=== PATIENT | male | born 1935 | race Caucasian/White ===

== ENCOUNTER 2023-03-11 19:54 | Inpatient (IN) | payer OTHER ==
[~2023-03-11] VITALS: Ht 185.4 cm; Wt 80.3 kg
--- NOTE | 2023-03-11 21:00 | NUR ---
Patient is removing oxygen tubing despite being told to keep oxygen in place. MD notified.
[2023-03-11 21:25] LABS: ABG BASE EXCESS -5.8 mmol/L; ABG HCO3 18.5 mmol/L; ABG PCO2 32.6 mmHg (35.0-45.0); ABG PH 7.372 (7.350-7.450); ABG PO2 206.3 mmHg (75.0-100.0); ABG SITE LEFT RADIAL; ABG TOTAL HEMOGLOBIN 12.6 G/dL (13.5-18.0); COHb 0.8 % (0.5-1.5); MetHb 0.2 % (0.0-1.5); O2Hb 98.7 % (94.0-97.0)
[2023-03-11] MEDS ORDERED: FUROSEMIDE 40 MG/4 ML VIAL IV ONE (22:00)
[2023-03-11 22:03] LABS: HEMATOCRIT 36.2 % (36.7-47.1); MEAN CORPUSCULAR HEMOGLOBIN 24.4 uug (23.8-33.4); MEAN CORPUSCULAR VOLUME 77.9 fL (73.0-96.2); PLATELET COUNT (AUTO) 463 K/uL (152-348)
[2023-03-11] MEDS ORDERED: FUROSEMIDE 40 MG/4 ML VIAL ONE (22:07)
[2023-03-11] MEDS ORDERED: PIPERACILLIN SODIUM/TAZOBACTAM 3.375 G in IV DEXTROSE 5% 50 ML IV ONE (22:30)
[2023-03-11] MEDS ORDERED: VANCOMYCIN IV 1,000 MG in IV DEXTROSE 5% 250 ML IV ONE (22:30)
[2023-03-11 22:35] LABS: CARBON DIOXIDE 28 mmol/L (21-32); CHLORIDE 97 mmol/L (98-107); CREATININE 1.4 mg/dL (0.6-1.3); POTASSIUM 4.4 mmol/L (3.5-5.1); UREA NITROGEN, BLOOD 31 mg/dL (7-18)
[2023-03-11 22:43] LABS: GLUCOSE 314 mg/dL (74-106)
--- NOTE | 2023-03-11 23:05 | NUR ---
Patient's wrist restraints removed as patient is sleeping and is not removing equipment. notified.
[2023-03-11] MEDS ORDERED: PIPERACILLIN/TAZOBACTAM/D5W 50 ML IV ONE (23:25)
[2023-03-11] MEDS ORDERED: MAGNESIUM SULFATE/D5W 100 ML ONE (23:25)
[2023-03-11] MEDS ORDERED: VANCOMYCIN IV 200 ML ONE (23:25)
[2023-03-11] MEDS ORDERED: MAGNESIUM SULFATE/D5W 300 ML ONE (23:26)
[2023-03-11] MEDS: MAGNESIUM SULFATE/D5W 100 ML IV SCH (23:39)
[2023-03-12] VITALS (8 sets, daily range): BP systolic 99–105; BP diastolic 39–56
[2023-03-12] MEDS ORDERED: REMEDY ESSENTIAL ZINC PASTE 113 GM TP PRN (00:15)
[2023-03-12] MEDS ORDERED: INSULIN REGULAR, HUMAN 300 UNIT/3 ML VIAL SQ PRN (00:15)
[2023-03-12] MEDS ORDERED: ACETAMINOPHEN 325 MG TABLET PO PRN (00:15)
[2023-03-12] MEDS ORDERED: ONDANSETRON 4 MG/2 ML VIAL IV PRN (00:15)
[2023-03-12] MEDS ORDERED: CEFEPIME HCL 1 G in IV DEXTROSE 5% 50 ML IV SCH (00:15)
[2023-03-12] MEDS ORDERED: MAGNESIUM HYDROXIDE 30 ML LIQUID UDC PO PRN (00:15)
[2023-03-12] MEDS ORDERED: DEXTROSE 50% 50 ML DISP.SYRIN IV PRN ×3 (00:15→20:30)
[2023-03-12] MEDS: MAGNESIUM SULFATE/D5W 100 ML IV SCH ×3 (00:19→02:49)
--- NOTE | 2023-03-12 01:07 | NUR ---
Called third floor to give report, but was informed that patient is CCU/ICU status.
--- NOTE | 2023-03-12 01:09 | NUR ---
Called central supply supervisor Dave made aware that patient is now CCU status. Was told no RN to recieve patient. Patient will remain in ER until ICU is available.
[2023-03-12 01:13] LABS: BILIRUBIN,DIRECT 0.6 mg/dL (0.0-0.2)
--- NOTE | 2023-03-12 01:23 | NUR ---
Lab called, spoke to Sp- patient's troponin is 88.2.
--- NOTE | 2023-03-12 01:29 | NUR ---
Called after hours pharmacy to verify patient meds.
[2023-03-12] MEDS ORDERED: CEFEPIME HCL 1 G VIAL ONE (02:01)
[2023-03-12] MEDS ORDERED: HYDR-4075 PO (02:01)
[2023-03-12] MEDS ORDERED: DOCU-141 PO (02:01)
[2023-03-12] MEDS ORDERED: LOSA50TA39 PO (02:01)
[2023-03-12] MEDS ORDERED: ARGI1POW17 PO (02:01)
[2023-03-12] MEDS ORDERED: FAMO20TA8 PO (02:01)
[2023-03-12] MEDS ORDERED: CHOL10005 PO (02:01)
[2023-03-12] MEDS ORDERED: MULT-213 PO (02:01)
[2023-03-12] MEDS ORDERED: LEVO50TA8 PO (02:01)
[2023-03-12] MEDS ORDERED: DOCU100C36 PO (02:01)
[2023-03-12] MEDS ORDERED: CRAN450T9 PO (02:01)
[2023-03-12] MEDS ORDERED: INSU100V42 (02:01)
[2023-03-12] MEDS ORDERED: AMIN30LI27 PO (02:01)
[2023-03-12] MEDS ORDERED: ZINC220T4 PO (02:01)
[2023-03-12] MEDS ORDERED: ACET-2605 PO (02:01)
[2023-03-12] MEDS ORDERED: NUT.237L36 PO (02:01)
[2023-03-12] MEDS ORDERED: ASCO500T85 PO (02:01)
--- NOTE | 2023-03-12 03:43 | NUR ---
Patient is in room sleeping comfortably.
--- NOTE | 2023-03-12 04:30 | NUR ---
Maxepime 1G given although pharmacy changed administration time.
[2023-03-12 05:22] LABS: HEMATOCRIT 32.4 % (36.7-47.1); MEAN CORPUSCULAR HEMOGLOBIN 24.4 uug (23.8-33.4); MEAN CORPUSCULAR VOLUME 77.2 fL (73.0-96.2); PLATELET COUNT (AUTO) 372 K/uL (152-348)
--- NOTE | 2023-03-12 05:35 | NUR ---
Transferred patient to hospital bed in room 1B in ER.
[2023-03-12 05:36] LABS: ABG BASE EXCESS 1.9 mmol/L; ABG HCO3 26.8 mmol/L; ABG PCO2 42.9 mmHg (35.0-45.0); ABG PH 7.413 (7.350-7.450); ABG PO2 113.9 mmHg (75.0-100.0); ABG SITE LEFT RADIAL; ABG TOTAL HEMOGLOBIN 12.2 G/dL (13.5-18.0); MetHb 0.1 % (0.0-1.5); O2Hb 97.6 % (94.0-97.0); VENT MODE BIPAP
[2023-03-12 05:44] LABS: BILIRUBIN,TOTAL 1.4 mg/dL (0.2-1.0)
[2023-03-12 05:45] LABS: BILIRUBIN,DIRECT 0.7 mg/dL (0.0-0.2); TOTAL PROTEIN, SERUM 6.7 g/dL (6.4-8.2)
[2023-03-12 05:49] LABS: CARBON DIOXIDE 30 mmol/L (21-32); CHLORIDE 97 mmol/L (98-107); CREATININE 1.2 mg/dL (0.6-1.3); MAGNESIUM 1.9 mg/dL (1.8-2.4); PHOSPHOROUS 3.7 mg/dL (2.5-4.9); POTASSIUM 3.9 mmol/L (3.5-5.1); UREA NITROGEN, BLOOD 32 mg/dL (7-18)
[2023-03-12 05:52] LABS: GLUCOSE 332 mg/dL (74-106)
[2023-03-12 05:53] LABS: THYROID STIMULATING HORMONE 3.269 mIU/mL (0.358-3.740)
--- NOTE | 2023-03-12 07:30 | NUR ---
NIGHT NURSE REPORT: 1) MAINTAINING SAFETY/MENTAL STATUS: Night RN stated that patient is AOx34 - maybe due to language barrier and condition, no sign of distress observed at the time of this report 2) BREATHING: Patient has BiPAP in situe- saturating in the high 93% on 28% oxygen 3) COMMUNICATION: Patient speaks Swedish only - will utilize translation resources to ensure that patient is able to communicate needs. 4) EATING & DRINKING:Patient is NPO - needs regular mouth care, and reassurance. 5) ELIMINATION: Is incontinent of bowel, uses a urinal to urinate. 6) HYGIENE: Need max assistance due to condition. 7) CONTROLLING TEMPERATURE: 8) MOBILITY: Patient on bedrest dude to medical condition. 9) WORKING & PLAYIN)SLEEPING: Patient asleep comfortably at the time of this report. 11) Will continue to: - Assess - Plan - Implement - Evaluate and treat patient accordingly.
--- NOTE | 2023-03-12 07:30 | NUR ---
SAFETY: Checked on patient after report - no sign of distress, sob, non verbal signs of pain observed.
[2023-03-12] MEDS ORDERED: INSULIN REGULAR, HUMAN 300 UNIT/3 ML VIAL ONE (07:52)
[2023-03-12] MEDS: BLOOD SUGAR DIAGNOSTIC 1 EACH STRIP VI SCH ×2 (08:01→12:10)
--- NOTE | 2023-03-12 08:15 | NUR ---
ADL/HYGIENE; 1) Bed bath provided. 2) Bed linen changed 3) Unable to provide mouth care secondary to BiPAP in situ. 4) Will continue to monitor, assess, plan, and implement care accordingly.
[2023-03-12] MEDS: CEFEPIME HCL 2 G in IV DEXTROSE 5% 100 ML IV SCH ×2 (08:56→21:04)
--- NOTE | 2023-03-12 09:00 | NUR ---
INFECTION CONTROL: 1) Cefepime changed dose from 1G to 2G 2) Infusion is running @ 100ml/hr as prescribed by MD 3) Iv Site - clean, dry, patent, no sign of infection or inflammation observed
[2023-03-12] MEDS ORDERED: IPRATROPIUM BROMIDE 0.5 MG/2.5 ML NEBU NEB PRN (09:15)
[2023-03-12] MEDS ORDERED: HEPARIN SODIUM,PORCINE/PF 100 UNIT/ML, 5ML SYR ONE (09:15)
[2023-03-12] MEDS ORDERED: PANTOPRAZOLE SODIUM 40 MG VIAL ONE (09:15)
[2023-03-12] MEDS ORDERED: FUROSEMIDE 40 MG/4 ML VIAL ONE (09:15)
[2023-03-12] MEDS ORDERED: ASPIRIN 81 MG TAB.CHEW ONE (09:15)
[2023-03-12] MEDS ORDERED: LEVALBUTEROL HCL NEB 0.63 MG/3 ML NEBU NEB PRN (09:15)
[2023-03-12] MEDS ORDERED: HEPARIN SODIUM,PORCINE 5,000 UNITS/ML VIAL ONE (09:16)
--- NOTE | 2023-03-12 09:21 | NUR ---
PULMONARY REVIEW: 1) Reviewed by pul MD - plan is to: - titrate BiPAP accordingly - trial without BiPAP 2) Patient asleep - comfortably, throughout MD assessment
--- NOTE | 2023-03-12 09:26 | NUR ---
MEDICATION: 1) Morning medication administered as prescribed. 2) Iv ATB prescribed will be infused as prescribed.
[2023-03-12] MEDS: ASPIRIN 81 MG TAB.CHEW PO SCH (09:28)
[2023-03-12] MEDS: FUROSEMIDE 40 MG/4 ML VIAL IV SCH ×2 (09:28→21:01)
[2023-03-12] MEDS: PANTOPRAZOLE SODIUM 40 MG VIAL IV SCH (09:28)
--- NOTE | 2023-03-12 09:30 | NUR ---
PRESSURE AREA CARE: 1) RT assisted with changing position and moving up the bed. 2) No change in condition - pressure areas
[2023-03-12] MEDS: HEPARIN SODIUM,PORCINE 5,000 UNITS/ML VIAL SQ SCH ×2 (09:56→21:02)
--- NOTE | 2023-03-12 09:57 | NUR ---
NURSE PRACTITIONER REVIEW: 1) Sb EXPORT SALES MANAGER: (i) Lung clear vs yesterday were diminished. (ii) RN to order podiatry 2) Will continue to monitor wound and provide care accordingly.
--- NOTE | 2023-03-12 10:06 | NUR ---
WOUN MANAGEMENT/ASSESSMENT/INFECTION CONTROL: 1) Wound assessment: Patient missing: (i) Left foot - two toes : 3rd & 4th (ii) Right foot - one toe: 2nd 2) Dressing taken of - light dressing in view of podiatry reviewing feet today. 3) Both wound sites have dmitri in situ. 4) No drainage, sign of infection or inflammation observed. Addendum: 03/12/23 at 1056 by [facility] RN1 RN 1) Right amputated toes - wound area - sloughy, and has an offensive odor. 2) The wound has both sutures and dmitri. 3) Right foot amputated toe - clean and granulating - no odor and had dmitri only.
--- NOTE | 2023-03-12 10:11 | NUR ---
MEDICATION ADMINISTRATION; 1) Iv Vanco infusing as prescribed. 2) Iv site remains patent, clean and no sign of infection or inflammation observed
--- NOTE | 2023-03-12 10:45 | NUR ---
BREATHIN) BiPAP removed - on 3 L OXYGEN VIA NASAL CANNULA. 2) Oxygen Sats 100%
--- NOTE | 2023-03-12 10:56 | NUR ---
CIRCULATION / ECHOGRAM: Patient having an echo gram at the time of this report.
[2023-03-12] MEDS: VANCOMYCIN IV 1,250 MG in IV DEXTROSE 5% 250 ML IV SCH (11:08)
[2023-03-12] MEDS ORDERED: ALBUTEROL SULFATE 1.25 MG/3 ML NEBU NEB PRN (11:15)
--- NOTE | 2023-03-12 11:35 | NUR ---
ACCU-CHECK - LUNCH TIME: 1) BS 247 - patient remains NPO 2) Insulin as per sliding scale administered as prescribed. 3) No signs of hyper glucemia observed.
--- NOTE | 2023-03-12 12:06 | NUR ---
PC REVIEW ORDERS: 1) Patient can be downgraded to Tele once MD (Cosme) Internal care MD has discussed patient with PC Akash 2) Informed - patient's swollen scrotum and areas around the penis area. 3) No new orders as patient is on diuretics - this is secondary yo fluid overload.
--- NOTE | 2023-03-12 12:21 | NUR ---
Patient is sleeping comfortably and no sign of distress observed.
--- NOTE | 2023-03-12 12:53 | NUR ---
URINE SAMPLE ORDER: 1) (Cosme) requested in & out urine specimen. 2) Obtained and sent to lab - awaiting results
[2023-03-12] MEDS ORDERED: INSULIN REGULAR, HUMAN 300 UNITS/3 ML VIAL SQ PRN (13:00)
[2023-03-12 13:26] LABS: *BILIRUBIN,URIN NEGATIVE (NEGATIVE); *BLOOD, URINE 3+ (NEGATIVE); *CLARITY,URINE CLOUDY (CLEAR); *COLOR,URINE YELLOW (YELLOW); *KETONES,URINE NEGATIVE (NEGATIVE); *UROBILINOGEN,URINE 0.2 E.U./dl (NORMAL); LEUKOCYTE ESTERASE ,URINE NEGATIVE (NEGATIVE); NITRITE, URINE NEGATIVE (NEGATIVE); UGLUCOSE NEGATIVE (NEGATIVE)
--- NOTE | 2023-03-12 13:38 | NUR ---
TRANSFER TO [facility] 3RD FLOOR: 1) Called and spoke to Dominique - bed allocated according to GIBRAN is 307. 2) Psychologist Counseling informed of the transfer. 3) Patient medically stable at the time of transfer.
[2023-03-12] MEDS ORDERED: BLOOD SUGAR DIAGNOSTIC 1 EACH STRIP VI SCH (16:30)
--- NOTE | 2023-03-12 16:30 | NUR ---
RESTRAINTS: 1) Restraints taken off since patient is off BiPAP 2) Patient less agitated as a results of this trial. 3) Will inform night staff to continue assessing safety
--- NOTE | 2023-03-12 16:49 | NUR ---
BLOOD SUGAR 112 - NO INSULIN COVER REQUIRED
--- NOTE | 2023-03-12 17:26 | NUR ---
WOUND CARE: 1) Pictures taken and in folder 2) GIBRAN updated.
--- NOTE | 2023-03-12 19:23 | NUR ---
Endorsed care to Layda. Informed patient has been juan alberto in the high 30s - 40s, and is FA - CHRONIC HX OF AF. Addendum: 03/12/23 at 1947 by [facility]RY [facility] RN1 RN PATIENT IS A CHRONIC A - Romulo - aware
--- NOTE | 2023-03-12 19:50 | NUR ---
CONSULTATION: 1) Wound and dietary consult orderd
[2023-03-12 22:01] LABS: WBC,URINE 0-3 /HPF (0-3)
[2023-03-12 22:02] LABS: BACTERIA,URINE FEW /HPF (NONE SEEN); SQUAMOUS EPITHELIAL CELL,UR FEW /HPF (NONE SEEN)
[2023-03-13] VITALS: BP 111/57
[2023-03-13] MEDS: BLOOD SUGAR DIAGNOSTIC 1 EACH STRIP VI SCH ×5 (00:23→20:55)
[2023-03-13] MEDS: INSULIN REGULAR, HUMAN 300 UNIT/3 ML VIAL SQ PRN ×5 (00:33→20:56)
[2023-03-13 05:00] VITALS: BP 109/58
[2023-03-13] MEDS: VANCOMYCIN IV 1,250 MG in IV DEXTROSE 5% 250 ML IV SCH ×2 (05:07→22:22)
[2023-03-13] MEDS: LEVOTHYROXINE SODIUM 50 MCG TABLET PO SCH (05:59)
--- NOTE | 2023-03-13 06:26 | NUR ---
NPO maintained as ordered. Remained Afib on the monitor, non sustaining. No significant event reported all night. No complaint presented. All needs attended and met. Continue care as planned.
[2023-03-13 06:33] LABS: HEMATOCRIT 32.2 % (36.7-47.1); MEAN CORPUSCULAR HEMOGLOBIN 24.5 uug (23.8-33.4); MEAN CORPUSCULAR VOLUME 76.7 fL (73.0-96.2); PLATELET COUNT (AUTO) 442 K/uL (152-348)
[2023-03-13 06:54] LABS: CREATININE 1.2 mg/dL (0.6-1.3); MAGNESIUM 1.6 mg/dL (1.8-2.4); PHOSPHOROUS 3.6 mg/dL (2.5-4.9); POTASSIUM 3.7 mmol/L (3.5-5.1)
[2023-03-13 07:46] VITALS: BP 132/63
[2023-03-13] MEDS: ASPIRIN 81 MG TAB.CHEW PO SCH (09:01)
[2023-03-13] MEDS: FUROSEMIDE 40 MG/4 ML VIAL IV SCH ×2 (09:01→20:34)
[2023-03-13] MEDS: PANTOPRAZOLE SODIUM 40 MG VIAL IV SCH (09:01)
[2023-03-13] MEDS: CEFEPIME HCL 2 G in IV DEXTROSE 5% 100 ML IV SCH ×2 (09:01→20:38)
[2023-03-13] MEDS: HEPARIN SODIUM,PORCINE 5,000 UNITS/ML VIAL SQ SCH ×2 (09:03→20:36)
[2023-03-13] MEDS: MAGNESIUM SULFATE/D5W 100 ML IV SCH ×2 (10:09→11:12)
--- NOTE | 2023-03-13 11:32 | NUR ---
WOUND CARE CONSULT: PT PRESENTS WITH BILATERAL SURGICAL SITES FOR TOE AMPUTATION, PRESENT ON ADMISSION. MICHELLE DRAINAGE NOTED TO RT FOOT. DR PERRY CALLED FOR DPM CONSULT. IN AGREEMENT WITH PLAN OF CARE. DISCUSSED SKIN PROTECTION WITH NURSING STAFF.
[2023-03-13 15:15] VITALS: BP 120/53
--- NOTE | 2023-03-13 17:00 | NUR ---
Requested a restraint order for the patient who is trying to climb out of bed and punch and kick staff that are trying to get him back to bed. Patient is also trying to remove IV lines and music department chair
--- NOTE | 2023-03-13 19:30 | NUR ---
Received patient lying in bed. AAOx1-2. Turkish speaking only. In no acute distress. IV site on right upper arm intact and patent. A. fib with PVC's on tele with HR of 59/min. Bilateral soft wrist restraint in place. Circulation checked. Safety measure initiated. Will continue to monitor.
[2023-03-13] MEDS: ATORVASTATIN 40 MG TABLET PO SCH (20:36)
[2023-03-13] MEDS: MUPIROCIN 2% OINT 22 GM TUBE NS SCH (20:37)
[2023-03-14] MEDS: LEVOTHYROXINE SODIUM 50 MCG TABLET PO SCH (06:07)
[2023-03-14 06:15] LABS: ABG BASE EXCESS 5.2 mmol/L; ABG HCO3 28.8 mmol/L; ABG PCO2 38.9 mmHg (35.0-45.0); ABG PH 7.488 (7.350-7.450); ABG PO2 61.8 mmHg (75.0-100.0); ABG SITE LEFT RADIAL; ABG TOTAL HEMOGLOBIN 11.1 G/dL (13.5-18.0); COHb 0.6 % (0.5-1.5); MetHb 0.4 % (0.0-1.5); O2Hb 91.2 % (94.0-97.0); VENT MODE ROOM AIR
--- NOTE | 2023-03-14 06:30 | NUR ---
No adverse effect noted from IV antibiotic. A. Fib with PVC's on tele with HR of 59/min. Brooks. wrist restraint in place. Circulation checked. Needs assessed and attended to. Safety measure maintained.
[2023-03-14] MEDS: BLOOD SUGAR DIAGNOSTIC 1 EACH STRIP VI SCH ×5 (06:44→21:26)
[2023-03-14 07:10] LABS: HEMATOCRIT 32.3 % (36.7-47.1); MEAN CORPUSCULAR HEMOGLOBIN 24.6 uug (23.8-33.4); MEAN CORPUSCULAR VOLUME 76.1 fL (73.0-96.2); PLATELET COUNT (AUTO) 462 K/uL (152-348)
[2023-03-14 07:31] LABS: CARBON DIOXIDE 32 mmol/L (21-32); CHLORIDE 94 mmol/L (98-107); CREATININE 1.2 mg/dL (0.6-1.3); GLUCOSE 142 mg/dL (74-106); MAGNESIUM 1.5 mg/dL (1.8-2.4); PHOSPHOROUS 3.6 mg/dL (2.5-4.9); POTASSIUM 3.1 mmol/L (3.5-5.1); UREA NITROGEN, BLOOD 30 mg/dL (7-18)
[2023-03-14] MEDS: ASPIRIN 81 MG TAB.CHEW PO SCH (08:09)
[2023-03-14] MEDS: PANTOPRAZOLE SODIUM 40 MG VIAL IV SCH (08:10)
[2023-03-14] MEDS: FUROSEMIDE 40 MG/4 ML VIAL IV SCH ×2 (08:10→21:00)
[2023-03-14] MEDS: MUPIROCIN 2% OINT 22 GM TUBE NS SCH ×2 (08:12→21:22)
[2023-03-14] MEDS: CEFEPIME HCL 2 G in IV DEXTROSE 5% 100 ML IV SCH ×2 (08:12→21:18)
[2023-03-14] MEDS: HEPARIN SODIUM,PORCINE 5,000 UNITS/ML VIAL SQ SCH ×2 (08:13→21:38)
[2023-03-14] MEDS: INSULIN REGULAR, HUMAN 300 UNIT/3 ML VIAL SQ PRN ×3 (08:40→17:21)
[2023-03-14] MEDS ORDERED: POTASSIUM CHLORIDE 20 MEQ POWDER PACKET GT ONE (09:00)
[2023-03-14] MEDS: MAGNESIUM SULFATE/D5W 100 ML IV SCH ×3 (09:39→11:46)
[2023-03-14] MEDS: POTASSIUM CHLORIDE 50 ML IV SCH ×4 (09:39→13:10)
[2023-03-14] MEDS: LOSARTAN POTASSIUM 25 MG TABLET PO SCH (10:46)
[2023-03-14 12:00] VITALS: BP 107/58
--- NOTE | 2023-03-14 12:14 | NUR ---
Noted pt. having BS 409. Gave insulin based on sliding scale and and reported to RECLAMATION FURNACE OPERATOR (Akash) and he placed order for Latus. Will keep monitoring the patient.
--- NOTE | 2023-03-14 14:03 | NUR ---
Noted pt. having HR 39 on the tele. Vital sign checked right away BP 76/22 RR 19 O2 93% room air. Reported to Dr. Bustos and and received order for 500 NS IV bolus. IV order initiated and Vital sign was monitored 10 minutes after IV running BP 100/50 HR 54 RR 18 Oxygen 95%. After 20 min IV running BP 111/52 HR 57 RR 18 98% RA and after 30min IV running BP 114/56 HR 66 RR 18 O2 98% RA. Pt. was responsive during the treatment and was able to open his eyes and verbalizing "I am ok" when nurse asked how do you feel. Will keep monitoring the patient.
[2023-03-14] MEDS: PROTEIN SUPPLEMENT (PROSTAT) 30 ML LIQUID PO SCH (14:16)
[2023-03-14] MEDS ORDERED: IV NORMAL SALINE 500 ML IV ONE (14:30)
[2023-03-14 16:00] VITALS: BP 111/59
[2023-03-14] MEDS: ARGININE/GLUTAMINE/CALCIUM BMB 1 EACH POWD.PACK PO SCH (17:10)
[2023-03-14] MEDS: VANCOMYCIN IV 1,250 MG in IV DEXTROSE 5% 250 ML IV SCH (17:12)
--- NOTE | 2023-03-14 18:40 | NUR ---
Again pt.'s vital sign checked BP 104/64 HR 63 RR 18o2 97% RA. Pt. is awake and alert. will keep monitoring the patient.
[2023-03-14 20:13] VITALS: BP 119/55
[2023-03-14] MEDS: ATORVASTATIN 40 MG TABLET PO SCH (21:21)
[2023-03-14] MEDS: INSULIN GLARGINE,HUM 300 UNITS/3 ML CARTRIDGE SQ SCH (21:31)
--- NOTE | 2023-03-14 21:57 | NUR ---
BP-93/62, reported to Dr Romeo with order to hold Furosemide, noted and carried out.
[2023-03-15] VITALS (7 sets, daily range): BP systolic 115–147; BP diastolic 46–78
[2023-03-15] MEDS: LEVOTHYROXINE SODIUM 50 MCG TABLET PO SCH (06:29)
[2023-03-15] MEDS: BLOOD SUGAR DIAGNOSTIC 1 EACH STRIP VI SCH ×4 (06:34→21:36)
[2023-03-15 07:10] LABS: MEAN CORPUSCULAR HEMOGLOBIN 24.1 uug (23.8-33.4); MEAN CORPUSCULAR VOLUME 74.8 fL (73.0-96.2); PLATELET COUNT (AUTO) 470 K/uL (152-348)
[2023-03-15 07:23] LABS: CREATININE 0.8 mg/dL (0.6-1.3); MAGNESIUM 1.7 mg/dL (1.8-2.4); PHOSPHOROUS 2.9 mg/dL (2.5-4.9); POTASSIUM 3.3 mmol/L (3.5-5.1)
[2023-03-15] MEDS: INSULIN REGULAR, HUMAN 300 UNIT/3 ML VIAL SQ PRN ×4 (08:24→21:18)
[2023-03-15] MEDS: PANTOPRAZOLE SODIUM 40 MG VIAL IV SCH (08:39)
[2023-03-15] MEDS: CEFEPIME HCL 2 G in IV DEXTROSE 5% 100 ML IV SCH ×2 (08:40→20:21)
[2023-03-15] MEDS: ASPIRIN 81 MG TAB.CHEW PO SCH (08:40)
[2023-03-15] MEDS: LOSARTAN POTASSIUM 25 MG TABLET PO SCH (08:41)
[2023-03-15] MEDS: ARGININE/GLUTAMINE/CALCIUM BMB 1 EACH POWD.PACK PO SCH ×2 (08:42→16:21)
[2023-03-15] MEDS: MUPIROCIN 2% OINT 22 GM TUBE NS SCH ×2 (08:43→20:22)
[2023-03-15] MEDS: PROTEIN SUPPLEMENT (PROSTAT) 30 ML LIQUID PO SCH (08:44)
[2023-03-15] MEDS: HEPARIN SODIUM,PORCINE 5,000 UNITS/ML VIAL SQ SCH ×2 (08:45→20:26)
[2023-03-15] MEDS ORDERED: MAGNESIUM OXIDE 400 MG TABLET PO ONE (10:30)
[2023-03-15] MEDS ORDERED: POTASSIUM CHLORIDE 20 MEQ TAB.PRT.SR PO ONE (10:30)
[2023-03-15] MEDS: VANCOMYCIN IV 1,250 MG in IV DEXTROSE 5% 250 ML IV SCH (11:32)
[2023-03-15 13:31] LABS: BAND % (MANUAL) 1 % (0-10); EOSINOPHILS % (MANUAL) 6 % (0-8); LYMPHOCYTES % (MANUAL) 10 % (20-40); MONOCYTES % (MANUAL) 9 % (2-10); NEUTROPHILS % (MANUAL) 74 % (42-75)
[2023-03-15] MEDS: MAGNESIUM SULFATE/D5W 100 ML IV SCH ×2 (16:35→19:43)
[2023-03-15] MEDS: ATORVASTATIN 40 MG TABLET PO SCH (20:22)
[2023-03-15] MEDS: INSULIN GLARGINE,HUM 300 UNITS/3 ML CARTRIDGE SQ SCH (21:09)
[2023-03-16 04:14] LABS: HEMATOCRIT 33.2 % (36.7-47.1); MEAN CORPUSCULAR HEMOGLOBIN 24.9 uug (23.8-33.4); MEAN CORPUSCULAR VOLUME 75.7 fL (73.0-96.2); PLATELET COUNT (AUTO) 475 K/uL (152-348)
[2023-03-16 04:15] VITALS: BP 133/65
[2023-03-16] MEDS: VANCOMYCIN IV 1,250 MG in IV DEXTROSE 5% 250 ML IV SCH (04:20)
[2023-03-16 04:27] LABS: CARBON DIOXIDE 33 mmol/L (21-32); CHLORIDE 98 mmol/L (98-107); CREATININE 0.9 mg/dL (0.6-1.3); GLUCOSE 86 mg/dL (74-106); MAGNESIUM 1.8 mg/dL (1.8-2.4); PHOSPHOROUS 2.4 mg/dL (2.5-4.9); POTASSIUM 3.8 mmol/L (3.5-5.1); UREA NITROGEN, BLOOD 21 mg/dL (7-18); VANCOMYCIN,TROUGH 18.4 ug/mL (12.0-20.0)
--- NOTE | 2023-03-16 05:19 | NUR ---
Slept comfortably through out the night. Remained calm. Wrist restraints remained off. O2 sat at 99%. No respiratory distress noted. All needs attended. Safety precautions maintained.
[2023-03-16] MEDS: LEVOTHYROXINE SODIUM 50 MCG TABLET PO SCH (06:15)
[2023-03-16] MEDS: BLOOD SUGAR DIAGNOSTIC 1 EACH STRIP VI SCH ×3 (06:32→16:26)
[2023-03-16] MEDS ORDERED: PANTOPRAZOLE SODIUM 40 MG TABLET.DR PO SCH (07:00)
[2023-03-16] MEDS: INSULIN REGULAR, HUMAN 300 UNIT/3 ML VIAL SQ PRN ×3 (08:19→16:28)
[2023-03-16] MEDS: ASPIRIN 81 MG TAB.CHEW PO SCH (08:20)
[2023-03-16] MEDS: LOSARTAN POTASSIUM 25 MG TABLET PO SCH (08:20)
[2023-03-16] MEDS: CEFEPIME HCL 2 G in IV DEXTROSE 5% 100 ML IV SCH (08:21)
[2023-03-16] MEDS: HEPARIN SODIUM,PORCINE 5,000 UNITS/ML VIAL SQ SCH (08:21)
[2023-03-16] MEDS: ARGININE/GLUTAMINE/CALCIUM BMB 1 EACH POWD.PACK PO SCH ×2 (08:22→16:43)
[2023-03-16] MEDS: PROTEIN SUPPLEMENT (PROSTAT) 30 ML LIQUID PO SCH (08:22)
[2023-03-16] MEDS: MUPIROCIN 2% OINT 22 GM TUBE NS SCH (08:25)
--- NOTE | 2023-03-16 09:01 | NUR ---
DR BRAVO HERE AND SEEN PATIENT WITH NEW ORDERS AND NOTED.
[2023-03-16] MEDS ORDERED: FUROSEMIDE 20 MG TABLET PO SCH (09:15)
--- NOTE | 2023-03-16 10:00 | NUR ---
PATIENT SEEN AND EXAMINED BY DR GREEN WITH NEW ORDER FOR LASIX AND NOTED.
[2023-03-16 12:24] VITALS: BP 129/68
--- NOTE | 2023-03-16 14:13 | NUR ---
DISCHARGE PLANNING TO [facility] TODAY COVID TEST DONE ORDERED AWAITING FOR ORDERS.
[2023-03-16] MEDS ORDERED: NEUTRA PHOS PACKET PO ONE (16:00)
[2023-03-16] MEDS ORDERED: ASPI81TA31 PO (16:18)
[2023-03-16] MEDS ORDERED: Insulin Glargine,Hum SQ (16:18)
[2023-03-16] MEDS ORDERED: FURO20TA4 PO (16:18)
[2023-03-16] MEDS ORDERED: ATOR40TA PO (16:18)
[2023-03-16] MEDS ORDERED: LOSA25TA27 PO (16:18)
[2023-03-16 16:26] VITALS: BP 130/60
--- NOTE | 2023-03-16 18:13 | NUR ---
CALLED [facility] SPOKE WITH JENISE AND REPORT GIVEN TO HER FOR CONTINUING CARE INCLUDING HAVING PATIENT SEE THE PODIATRY SURGEON RE THE WOUND ON BOTH FEET WITH MARCIA AND SUTURES STILL IN THE WOUND AND SHE EXPRESSED UNDERSTANDING.
--- NOTE | 2023-03-16 18:55 | NUR ---
PATIENT DISCHARGED PICKED UP BY [facility] IN SATISFACTORY CONDITION WITH DISCHARGE INSTRUCTIONS PATIENT HAS NO PERSONAL BELONGINGS EXCEPT HIS WRIST WATCH AND HE IS WEARING IT ON HIS LEFT WRIST AT THIS TIME.
== END 2023-03-16 18:55 | DRG 871 ==
LOC: ER 19:54 → TELE-TD3 22:36 → TRANSITION 03-12 00:22 → TELE-TD3 03-12 13:42 → TELE3 03-13 10:05
PROVIDERS: ADMIT Nurse Practitioner Acute Care; ATTEND Nurse Practitioner Acute Care
PROC: 5A09357 Assistance with Respiratory Ventilation, Less than 24 Consecutive Hours, Continuous Positive Airway Pressure (ICD-10-PCS; principal; 2023-03-11)
DX: A41.9 Sepsis, unspecified organism (principal); J96.01 Acute respiratory failure with hypoxia; J18.9 Pneumonia, unspecified organism; E43 Unspecified severe protein-calorie malnutrition; I50.43 Acute on chronic combined systolic (congestive) and diastolic (congestive) heart failure; N17.0 Acute kidney failure with tubular necrosis; I21.A1 Myocardial infarction type 2; G93.41 Metabolic encephalopathy; L98.498 Non-pressure chronic ulcer of skin of other sites with other specified severity; E87.1 Hypo-osmolality and hyponatremia; I48.20 Chronic atrial fibrillation, unspecified; I13.0 Hypertensive heart and chronic kidney disease with heart failure and stage 1 through stage 4 chronic kidney disease, or unspecified chronic kidney disease; M86.8X7 Other osteomyelitis, ankle and foot; L03.115 Cellulitis of right lower limb; E87.20 Acidosis, unspecified; R65.20 Severe sepsis without septic shock; E87.6 Hypokalemia; E83.42 Hypomagnesemia; E11.65 Type 2 diabetes mellitus with hyperglycemia; E11.621 Type 2 diabetes mellitus with foot ulcer; E11.51 Type 2 diabetes mellitus with diabetic peripheral angiopathy without gangrene; I70.25 Atherosclerosis of native arteries of other extremities with ulceration; E03.9 Hypothyroidism, unspecified; Z68.23 Body mass index [BMI] 23.0-23.9, adult; D75.839 Thrombocytosis, unspecified; E11.42 Type 2 diabetes mellitus with diabetic polyneuropathy; K21.9 Gastro-esophageal reflux disease without esophagitis; Z89.422 Acquired absence of other left toe(s); Z91.81 History of falling; T50.2X5A Adverse effect of carbonic-anhydrase inhibitors, benzothiadiazides and other diuretics, initial encounter; R13.10 Dysphagia, unspecified; E11.22 Type 2 diabetes mellitus with diabetic chronic kidney disease; N18.9 Chronic kidney disease, unspecified; M85.80 Other specified disorders of bone density and structure, unspecified site; E11.69 Type 2 diabetes mellitus with other specified complication; I08.0 Rheumatic disorders of both mitral and aortic valves; Z79.890 Hormone replacement therapy; I25.5 Ischemic cardiomyopathy; I25.10 Atherosclerotic heart disease of native coronary artery without angina pectoris; E88.09 Other disorders of plasma-protein metabolism, not elsewhere classified; I25.2 Old myocardial infarction; D64.9 Anemia, unspecified
CPT/HCPCS: 36415; 36600; 70030-TC; 71045; 82803; 83605; 83735; 84100; 84443; 84480; 84484; 85025; 85651; 85730; 87040; 93005; 93307; 94660; 94664; 94760; A4663; C9113; G0378; J0692; J1642; J1644; J1815; J1940; J2543; J3370; J3475; J3480; J3590; J7040; J7050